=== PATIENT | female | born 1960 | race Caucasian/White ===

== ENCOUNTER → 2016-08-13 | Outpatient (CLI) | payer MEDICARE, OTHER ==
[~2016-08-13] MED LIST: ASPIRIN81 M2 PO; FUROSEMIDE40 MG PO; GABAPENTIN600 MG PO; GENTAMICIN TOP; HYDROCODON-ACE1 EAC7 PO; KLOR-CON PO; LANTUS100 U/ML; LEVOTHYROXINE100 MC1 PO; LIPITOR80 MG PO; METFORMIN PO; METOPROLOL TAR25 MG; PROTONIX PO; PROZAC40 M1 PO; SAVAYSA60 MG
[2016-08-13 10:41] LABS: HEMATOCRIT 37.5 % (35.0-45.0); HEMOGLOBIN 12.2 gm/dL (12.0-16.0); MEAN CELL VOLUME 87.2 FL (83-96); MEAN CORPUSCULAR HEMOGLOBIN 28.3 PG (28-34); MEAN CORPUSCULAR HGB CONC 32.4 g/dL (30-36); RED BLOOD COUNT 4.3 X10e (3.90-5.30); RED CELL DISTRIBUTION WIDTH 15.9 % (11.0-15.5); WHITE BLOOD COUNT 8.1 X10e3 (4.0-10.5)
[2016-08-13 11:13] LABS: CALCIUM SERUM 9.4 mg/dL (8.4-10.2); CREATININE SERUM 1.2 mg/dL (0.6-1.4); GLOM FILT RATE Estimated 49.8 mL/min (>60); POTASSIUM 4.4 mmol/L (3.5-5.1)
[2016-08-13 11:58] LABS: URINE APPEARANCE CLOUDY; URINE BILIRUBIN NEG (NEG); URINE BLOOD NEG (NEG); URINE COLOR YELLOW; URINE GLUCOSE NEG (NEG); URINE KETONE NEG (NEG); URINE LEUKOCYTE ESTERASE 3+ (NEG); URINE NITRATE POS (NEG); URINE PROTEIN NEG (NEG); URINE UROBILINOGEN 0.2 MG/DL (NEG)
[2016-08-13 12:00] LABS: CULTURE INDICATED? YES; URBCS1 AUWI 0-2 /[HPF] (0-2); URINE BACTERIA AUWI 4+ (NEGATIVE); URINE SQUAMOUS EPITHELIAL CELL NONE SEEN /[HPF]; UWBCS1 AUWI 200-300 (0-5)
[2016-08-13 12:04] LABS: URINE SOURCE CLEAN CATCH
== END | disposition home or self-care (01) ==
LOC: CAMB 09:16
PROVIDERS: Orthopaedic Surgery
DX: Z01.812 Encounter for preprocedural laboratory examination (principal); S42.202K Unspecified fracture of upper end of left humerus, subsequent encounter for fracture with nonunion
CPT/HCPCS: 36415; 80048; 81003; 85027; 87070; 87086; 87088; 87186